=== PATIENT | male | born 1945 | race Caucasian/White ===

== ENCOUNTER 2019-03-06 08:27 | Emergency (ER) | payer OTHER, BC ==
--- OUTSIDE RECORDS SUMMARY | 2019-03-06 08:50 | XMS REPORT | Clinical Summary ---
:1945 Author Organization [facility] Address [address] [place] [address] Care Team Providers Name Role Phone Ethan Moses MD Primary Care Provider Allergies No Known Allergies Medications Medication Sig Dispensed Refills Start Date End Date Status metFORMIN TK 1 T PO BID 3 08/10/2016 Active (GLUCOPHAGE) 1,000 mg WITH SILVA AND tablet DINNER rosuvastatin TK 1 T PO QD 3 08/15/2016 Active (CRESTOR) 5 MG tablet lisinopril Take 2.5 mg by 0 Active (PRINIVIL,ZESTRIL) mouth daily. 2.5 mg tablet sitaGLIPtin (JANUVIA) Take 100 mg by 0 Active 100 MG tablet mouth daily. aspirin (ECOTRIN) 81 Take 81 mg by 0 Active MG enteric coated mouth daily. tablet valsartan (DIOVAN) 40 Take 40 mg by 0 Active MG tablet mouth daily. pioglitazone (ACTOS) Take 30 mg by 0 Active 15 MG tablet mouth daily. acetaminophen-codeine Take 1-2 tablets 40 tablet 0 02/19/2019 03/01/2019 (TYLENOL WITH CODEINE by mouth every 6 #3) 300-30 mg per (six) hours as tablet needed for moderate pain for up to 10 days. Hospital, Clinic, or Other Ordered Dose Route Frequency Start Date End Date Status Facility Administered Medication hylan g-f 20 (SYNVISC-ONE) 48 mg IAtc once 03/21/2018 Active injection 48 mgIndications: Primary osteoarthritis of left knee hylan g-f 20 (SYNVISC-ONE) 48 mg IAtc once 12/12/2018 12/12/2018 Ended injection 48 mgIndications: Primary osteoarthritis of left knee Active Problems Problem Noted Date Acute medial meniscus tear of left knee 02/18/2019 Encounters Date Type Specialty Care Team Description 03/01/2019 Office Visit Orthopedic Surgery Hema Hooker Primary osteoarthritis of left knee (Primary Dx); MD Kye Acute medial meniscus tear of left knee, initial encounter; Postoperative visit 02/19/2019 Surgery Orthopedic Surgery Hema Hooker LEFT KNEE ARTHROSCOPY MD Kye WITH MEDIAL MENISCECTOMY 02/19/2019 Anesthesia Event Orthopedic Surgery Kamar Ford MD 02/19/2019 Hospital Encounter Orthopedic Surgery Hema Hooker MD 02/19/2019 Orders Only Orthopedic Surgery George Weaver PA-C 01/14/2019 Orders Only Orthopedic Surgery George Weaver Acute medial meniscus ELLEN Brown tear of left knee, subsequent encounter (Primary Dx) 12/12/2018 Office Visit Orthopedic Surgery Hema Hooker Primary osteoarthritis MD Kye of left knee (Primary Dx) 03/21/2018 Office Visit Orthopedic Surgery Hema Hooker Primary osteoarthritis of left knee (Primary Dx); MD Kye Chronic pain of left knee after 03/05/2018 Family History Medical History Relation Name Comments Diabetes Father No Known Problems Maternal Grandfather No Known Problems Maternal Grandmother No Known Problems Mother No Known Problems Paternal Grandfather No Known Problems Paternal Grandmother Relation Name Status Comments Father Maternal Grandfather Maternal Grandmother Mother Paternal Grandfather Paternal Grandmother Social History Tobacco Use Types Packs/Day Years Used Date Former Smoker Smokeless Tobacco: Former User Comments: quit 30 yrs ago Alcohol Use Drinks/Week oz/Week Comments Yes 3 Shots of liquor 3.0 per month Sex Assigned at Date Recorded Not on file Job Start Date Occupation Industry Not on file Not on file Not on file Travel History Travel Start Travel End No recent travel history available. Last Filed Vital Signs Vital Sign Reading Time Taken Comments Blood Pressure 132/74 02/19/2019 11:10 AM CDT Pulse 65 02/19/2019 11:10 AM CDT Temperature 36.6 C (97.9 F) 02/19/2019 11:10 AM CDT Respiratory Rate 14 02/19/2019 11:10 AM CDT Oxygen Saturation 98% 02/19/2019 11:10 AM CDT Inhaled Oxygen Concentration - - Weight 89.8 kg (198 lb) 02/19/2019 6:56 AM CDT Height 182.9 cm (6') 02/19/2019 6:56 AM CDT Body Mass Index 26.85 02/19/2019 6:56 AM CDT Plan of Treatment Health Maintenance Due Date Last Done Comments COLONOSCOPY SCREENING 1996 SHINGLES VACCINES (#1) 1996 65+ PNEUMOCOCCAL VACCINE (1 of 2 - PCV13) 09/04/2011 INFLUENZA VACCINE 01/31/2019 Procedures Procedure Name Priority Date/Time Associated Comments Diagnosis POC GLUCOSE Routine 02/19/2019 8:40 Results for this AM CDT procedure are in the results section. [place] AN ELECTIVE Routine 02/19/2019 7:51 Results for this SUPRAGLOTTIC AIRWAY AM CDT procedure are in the results section. OPERATION, KNEE, 02/19/2019 7:39 Acute medial ARTHROSCOPIC AM CDT meniscus tear of left knee, initial encounter Case Notes REQ 0745 START Special Needs REQ 0745 START POC GLUCOSE Routine 02/19/2019 6:40 Results for this AM CDT procedure are in the results section. [place] ARTHROCENTESIS Routine 12/12/2018 10:30 Primary Results for this ASPIR&/INJ MAJOR AM CDT osteoarthritis of procedure are in JT/BURSA W/O US left knee the results section. XR LEG LENGTH Routine 03/21/2018 11:11 Chronic pain of left Results for this EVALUATION AM CDT knee procedure are in the results section. XR KNEE 3 VW LEFT Routine 03/21/2018 11:11 Chronic pain of left Results for this AM CDT knee procedure are in the results section. [place] ARTHROCENTESIS Routine 03/21/2018 10:30 Primary Results for this ASPIR&/INJ MAJOR AM CDT osteoarthritis of procedure are in JT/BURSA W/O US left knee the results section. after 03/05/2018 Results POC glucose (02/19/2019 8:40 AM CDT)Only the most recent of2 resultswithin the time period is included. POC glucose 149 (H) 65 - 99 mg/dL [facility] Comment: [facility] Notified RN Meter ID: [id number] Repairer Pump: Richy Warner Specimen Performing Organization Address City/State/Zipcode Phone Number [facility] DEPARTMENT OF PATHOLOGY AND [address] [place] [id number] [facility] [address] [place] [address] Airway (02/19/2019 7:51 AM CDT) Narrative Performed At Avila Tao CRNA 02/19/20197:51 AM Airway Date/Time: 02/19/2019 7:45 AM Performed by: Avila Tao CRNA Authorized by: Kamar Ford MD Location:OR Urgency:Elective Difficult Airway: No Resident/UNDERWATER PHOTOGRAPHER/AA:Avila Tao CRNA Performed by: resident/UNDERWATER PHOTOGRAPHER/AA Preoxygenated with 100% O2: Yes C-spine Precautions Maintained Throughout: Yes Mask Ventilation:Not attempted Final Airway Type:Supraglottic airway Final LMA:I-Gel LMA Size:5 Number of Attempts at Approach:1 Easy and atraumatic LMA insertion; Dentition unchanged; AOSI; +BSEB, +ETCO2; Eyes paper taped post LOC Left Knee Cortisone Injection (12/12/2018 10:30 AM CDT) Narrative Performed At Hema Hooker MD 12/12/2018 11:27 AM Left Knee Cortisone Injection Consent given by: patient Timeout: Immediately prior to procedure a time out was called to verify the correct patient, procedure, equipment, cell support operator and site/side marked as required Supporting Documentation Indications: pain Procedure Details Preparation: Patient was prepped and draped in the usual sterile fashion Ultrasound guided: no Location: knee - L knee Left side: Needle size: 20 G Approach: anterolateral Left knee medications administered: 40 mg methylPREDNISolone acetate 40 mg/mL; 1 mL lidocaine 10 mg/mL (1 %); 48 mg hylan g-f 20 48 mg/6 mL Patient tolerance: patient tolerated the procedure well with no immediate complications XR Leg Length Evaluation (03/21/2018 11:11 AM CDT) Specimen Narrative Performed At The mechanical axis of the right lower extremity falls to the side of the [facility] joint reveals a properly placed [place] unicompartmental prosthesis. On the left side the axis falls to the center of the joint but there appears to be some compression of the medial tibial plateau articular cartilage. I see no evidence of hip nor ankle arthritis. Performing Organization Address City/State/Zipcode Phone Number [facility] [address] [place] [address] XR Knee 3 Vw Left (03/21/2018 11:11 AM CDT) Specimen Narrative Performed At 3 x-ray views of the left knee show the joint spaces are maintained but HM RADIANT there is suspicion for a lateral osteophyte. His leg alignment is neutral. The patella femoral joint is pristine. Performing Organization Address City/State/Zipcode Phone Number [facility] [address] [place] [address] Large Joint Arthrocentesis (03/21/2018 10:30 AM CDT) Narrative Performed At Hema Hooker MD 03/21/2018 11:49 AM Large Joint Arthrocentesis Consent given by: patient Timeout: Immediately prior to procedure a time out was called to verify the correct patient, procedure, equipment, cell support operator and site/side marked as required Supporting Documentation Indications: pain Procedure Details Preparation: Patient was prepped and draped in the usual sterile fashion Ultrasound guided: no Location: knee - L knee Left side: Approach: anterolateral Left knee medications administered: 40 mg methylPREDNISolone acetate 40 mg/mL; 1 mL lidocaine 10 mg/mL (1 %); 48 mg hylan g-f 20 48 mg/6 mL Patient tolerance: patient tolerated the procedure well with no immediate complications after 03/05/2018 Insurance Payer Benefit Plan / Subscriber ID Effective Dates Phone Address Type Group MEDICARE MEDICARE PART A xxxxxxxxxxx 2011-Present [place], [place] Medicare AND B BCBS BCBS PAR/TRAD xxxxxxxxxxxx 2011-Present Indemnity PLAN [phone] [facility] 5 (Home) [place], [phone] [place] [phone] 7 (Work) Kush Payne Reconstructive Self 1945 [phone] [facility] Surgery 5 (Home) [place], [phone] [place] [address] 7 (Work) Advance Directives For more information, please contact: [phone] Type Date Recorded Patient Freight Delivery Driver Explanation Advance Directives, Living Will and Medical Power of Equal Opportunity Counselor
[2019-03-06] MEDS ORDERED: MAGNE/ALUM HYDROXD 30 ML UCUP ONE (08:55)
[2019-03-06] MEDS ORDERED: LIDOCAINE VISCOUS 2% SOLN 15 ML UDC ONE (08:55)
[2019-03-06 09:08] LABS: Absolute Lymphocytes (CBC) 1.4 K/uL (0.7-4.9); Basophils % 0.3 % (0-1.3); Hematocrit 40.3 % (39.6-49.0); MPV 8.4 fL (7.6-11.3); RBC Red Blood Cell Count 4.32 M/uL (4.33-5.43)
[2019-03-06 09:37] LABS: ALT/SGPT 67 U/L (12-78); AST/SGOT 82 U/L (15-37); Albumin 3.9 g/dL (3.4-5.0); Alkaline Phosphatase 93 U/L (45-117); BUN Blood Urea Nitrogen 27 mg/dL (7-18); Bicarbonate 23 mmol/L (21-32); Bilirubin Direct 0.2 mg/dL (0-0.2); Bilirubin Total 0.5 mg/dL (0.2-1.0); Glucose Level 199 mg/dL (74-106); Lipase 120 U/L (73-393); Potassium 4.2 mmol/L (3.5-5.1); Protein, Total 7.1 g/dL (6.4-8.2); Sodium Level 143 mmol/L (136-145); Troponin (Emerg Dept Use Only) < 0.02 ng/mL (0.0-0.045)
--- NOTE | 2019-03-06 09:43 | RAD REPORT ---
EXAM DESCRIPTION: RAD - Chest Single View - 03/06/2019 9:20 am CLINICAL HISTORY: Chest pain, hypertension COMPARISON: December 2014 TECHNIQUE: AP portable chest image was obtained 0906 hours . FINDINGS: Lungs are clear of acute finding. Lung markings match comparison. Heart and vasculature ar e normal. No measurable pleural effusion and no pneumothorax. No acute bony abnormality seen. No acut e aortic findings suspected. IMPRESSION: No acute cardiopulmonary process. No significant interval change.
[2019-03-06] MEDS ORDERED: NA CHLORIDE 0.9% 500 ML ONE (09:48)
--- NOTE | 2019-03-06 10:08 | EKG ---
Test Date: 2019-03-06 Test Time: 08:34:53 Branch Associate Teller: ANASTASIIA MEASUREMENT RESULTS: Intervals: Rate: 54 TX: 160 QRSD: 96 QT: 454 QTc: 430 [place]: P: 74 TX: 160 QRS: 61 T: 48 INTERPRETIVE STATEMENTS: Sinus bradycardia Otherwise normal ECG Compared to ECG 02/15/2012 01:28:50 Sinus rhythm no longer present Electronically Signed On 03-06-19 10:07:08 CDT by Adarsh Barrios
--- NOTE | 2019-03-06 10:25 | RAD REPORT ---
EXAM DESCRIPTION: CT - Chest For Pe Angio - 03/06/2019 9:57 am CLINICAL HISTORY: Chest pain. CHEST PAIN COMPARISON: THORAX WO CONTRAST dated 11/04/2011 TECHNIQUE: CT angiogram of the pulmonary arteries was performed with MIP. All CT scans are performed using dose optimization technique as appropriate and may include automated exposure control or mA/KV adjustment according to patient size. FINDINGS: No evidence of pulmonary thromboembolism. No acute aortic finding demonstrated. Mild emphysematous changes are present. No significant pericardial or pleural fluid. No concerning bony finding. IMPRESSION: No evidence of pulmonary thromboembolism. Mild COPD.
--- NOTE | 2019-03-06 10:38 | RAD REPORT ---
EXAM DESCRIPTION: US - Extremity Venous Uni Ltd - 03/06/2019 9:52 am CLINICAL HISTORY: Left leg pain and swelling COMPARISON: None. TECHNIQUE: Real-time sonographic evaluation of the left lower extremity deep venous system was perfo rmed. FINDINGS: Normal compressibility, flow augmentation, phasic flow and spontaneous flow are identified in the left lower extremity common femoral, superficial femoral, popliteal and posterior tibial vein s. No intraluminal filling defects seen. IMPRESSION: No DVT in the left lower extremity.
--- NOTE | 2019-03-06 11:20 | RAD REPORT ---
EXAM DESCRIPTION: CT - Abdomen Pelvis Wo Contrast - 03/06/2019 11:09 am CLINICAL HISTORY: Abdominal pain. ABD PAIN COMPARISON: CT ABD PELVIS W CONTRAST dated 02/14/2012; Chest For Pe Angio dated 03/06/2019 TECHNIQUE: CT imaging of the abdomen and pelvis was performed without contrast. Solid organ, bowel a nd vascular assessment is limited due to lack of IV and oral contrast. All CT scans are performed using dose optimization technique as appropriate and may include automated exposure control or mA/KV adjustment according to patient size. FINDINGS: The lower lung moore are clear.Cholecystectomy clips. The liver, spleen, pancreas, adrenal glands and kidneys are within normal limits for a limited non-co ntrast examination. No bowel obstruction, free air, free fluid or abscess. Sigmoid diverticulosis coli without diverticul itis. The appendix is normal. The osseous structures are within normal limits. IMPRESSION: Sigmoid diverticulosis coli without diverticulitis. A limited non-contrast examination was performed as detailed.
--- NOTE | 2019-03-06 13:13 | ER ---
Nurse's Notes [facility] Name: Kush Payne Age: 73 yrs Sex: Male : 1945 Arrival Date: 03/06/2019 Time: 08:30 Bed 13 Private MD: Diagnosis: Gastritis, unspecified;Diverticulosis of large intestine without perforation or abscess without bleeding Presentation: 03/06 08:30 Presenting complaint: Patient states: chest pain that began today at 0700 that it's aa5 intermittent. Pt denies nausea, denies SOB. Transition of care: patient was not received from another setting of care. Onset of symptoms was March 06, 2019. Risk Assessment: Do you want to hurt yourself or someone else? Patient reports no desire to harm self or others. Care prior to arrival: None. 08:30 Method Of Arrival: Ambulatory aa5 08:30 Acuity: [facility] 2 aa5 09:44 Initial Sepsis Screen: Does the patient meet any 2 criteria? No. Patient's initial tw2 sepsis screen is negative. Does the patient have a suspected source of infection? No. Patient's initial sepsis screen is negative. Historical: - Allergies: 08:32 No Known Allergies; aa5 - Home Meds: 09:05 metformin 1,000 mg Oral tab [Active]; Januvia oral oral [Active]; glimepiride Oral jl7 [Active]; Levemir 100 unit/mL subcutaneous soln [Active]; - PMHx: 08:32 Diabetes - IDDM; Hypertension; aa5 - PSHx: 08:32 eye sx; left knee; Cholecystectomy; aa5 - Immunization history:: Flu vaccine is not up to date. - Social history:: Smoking status: Patient/guardian denies using tobacco. - Ebola Screening: : No symptoms or risks identified at this time. - Family history:: not pertinent. - Hospitalizations: : No recent hospitalization is reported. Screenin:54 Abuse screen: Denies threats or abuse. Denies injuries from another. Nutritional jl7 screening: No deficits noted. Tuberculosis screening: No symptoms or risk factors identified. Fall Risk IV access (20 points). Total Reyna Fall Scale indicates No Risk (0-24 pts). Assessment: 08:30 General: Appears in no apparent distress. Behavior is cooperative, appropriate for age. tw2 Pain: Complains of pain in chest Pain does not radiate. Pain began 2 hours ago. Aggravated by pain is intermittent. Neuro: Level of Consciousness is awake, alert, obeys commands, Oriented to person, place, time, situation. Cardiovascular: Reports chest pain, Heart tones S1 S2 Patient's skin is warm and dry. Rhythm is sinus rhythm. Respiratory: Airway is patent Respiratory effort is even, unlabored, Respiratory pattern is regular, symmetrical, Breath sounds are clear bilaterally. GI: No signs and/or symptoms were reported involving the gastrointestinal system. Abdomen is round Bowel sounds present X 4 quads. : No signs and/or symptoms were reported regarding the genitourinary system. EENT: No signs and/or symptoms were reported regarding the EENT system. Derm: No signs and/or symptoms reported regarding the dermatologic system. Musculoskeletal: Range of motion: intact in all extremities. 09:44 Reassessment: pt in imaging at this time, not available for vs at this time. tw2 10:07 Reassessment: Patient appears in no apparent distress at this time. Patient and/or tw2 family updated on plan of care and expected duration. Pain level reassessed. Patient is alert, oriented x 3, equal unlabored respirations, skin warm/dry/pink. Patient states feeling better. Patient states symptoms have improved. 11:13 Reassessment: Patient appears in no apparent distress at this time. No changes from tw2 previously documented assessment. Patient and/or family updated on plan of care and expected duration. Pain level reassessed. Patient is alert, oriented x 3, equal unlabored respirations, skin warm/dry/pink. 12:24 Reassessment: dr sullivan explained the results to the patient. advised about the waiting mg2 time for the repeat lab test. Vital Signs: 08:32 BP 94 / 68; Pulse 56; Resp 18 S; Temp 97.5(O); Pulse Ox 99% on R/A; Weight 90.72 kg aa5 (R); Height 6 ft. 0 in. (182.88 cm) (R); Pain 3/10; 09:06 BP 107 / 68; Pulse 57; Resp 14 S; Pulse Ox 98% on R/A; jl7 10:07 BP 107 / 69; Pulse 65; Resp 19; Pulse Ox 100% on R/A; Pain 0/10; tw2 11:13 BP 138 / 96; Pulse 57; Resp 17; Pulse Ox 100% on R/A; tw2 12:24 BP 138 / 82; Pulse 61; Resp 18; Pulse Ox 100% on R/A; mg2 08:32 Body Mass Index 27.13 (90.72 kg, 182.88 cm) aa5 ED Course: 08:30 Patient arrived in ED. aa5 08:30 Arm band placed on. aa5 08:31 Triage completed. aa5 08:33 EKG completed in triage. Results shown to MD. aa5 08:34 EKG done, by ED staff, reviewed by Abhilash Sullivan MD. dh3 08:41 Abhilash Sullivan MD is Attending Physician. rn 08:53 Silvana Kohli RN is Primary Nurse. tw2 08:54 Patient has correct armband on for positive identification. Bed in low position. Call jl7 light in reach. Side rails up X 1. rn gynecology on. Pulse ox on. NIBP on. 08:54 Initial lab(s) drawn, by me, sent to lab. Inserted saline lock: 20 gauge in right jl7 forearm, using aseptic technique. Blood collected. Patient maintains SpO2 saturation greater than 95% on room air. 09:29 XRAY Chest (1 view) In Process Unspecified. EDMS 10:02 CT Chest For PE Angio In Process Unspecified. EDMS 10:02 Extremity Venous Uni Ltd US In Process Unspecified. EDMS 11:18 Abdomen In Process Unspecified. EDMS 12:05 Report given to MAYO Field. tw2 12:23 No provider procedures requiring assistance completed. Repeat lab(s) drawn. by me, sent mg2 to lab. 13:10 Smith Reveles MD is Referral Physician. rn 13:27 IV discontinued, intact, bleeding controlled, No redness/swelling at site. Pressure tw2 dressing applied, per MAYO Field. Administered Medications: 08:58 Drug: GI Cocktail without - (Maalox Suspension 30 ml, Lidocaine Liquid 2 % 15 tw2 ml) Route: PO; 11:59 Follow up: Response: No adverse reaction tw2 10:07 Drug: NS 0.9% 500 ml Route: IV; Rate: bolus; Site: right antecubital; tw2 Outcome: 13:10 Discharge ordered by . rn 13:27 Patient left the ED. tw2 13:27 Discharged to home ambulatory, with family. 13:27 Condition: stable 13:27 Condition: stable 13:27 Discharge instructions given to patient, family, Instructed on discharge instructions, follow up and referral plans. Demonstrated understanding of instructions, follow-up care. Signatures: Dispatcher [employer] EDMS Abhilash Sullivan MD MD rn Calderon, Audri RN RN aa5 Silvana Kohli RN RN tw2 Brady Berger RN RN 7 Fatimah Menjivar 3 Osito Walters RN RN mg2 Corrections: (The following items were deleted from the chart) 08:35 08:32 90.72 kg Reported; Height 6 ft. 0 in. Reported; BMI: 27.1; Pain 3/10; aa5 aa5 08:35 08:32 Pulse 56bpm; Resp 18bpm; Spontaneous; Pulse Ox 99% RA; Temp 97.5F Oral; 90.72 kg aa5 Reported; Height 6 ft. 0 in. Reported; BMI: 27.1; Pain 3/10; aa5 08:36 08:30 Acuity: [facility] 3 aa5 aa5 09:44 08:30 Reassessment: tw
--- NOTE | 2019-03-06 13:14 | EDPHYS ---
Physician Documentation [facility] Name: Kush Payne Age: 73 yrs Sex: Male : 1945 Arrival Date: 03/06/2019 Time: 08:30 Bed 13 Private MD: ED Physician Abhilash Sullivan HPI: 03/06 09:05 This 73 yrs old Male presents to ER via Ambulatory with complaints of rn abdominal and chest pain. 09:05 The patient or guardian reports chest pain that is located primarily in the substernal rn area, epigastric area. Onset: this morning. The pain does not radiate. Associated signs and symptoms: Pertinent positives: abdominal pain, lower extremity swelling, Pertinent negatives: cough, diaphoresis, dizziness, lightheadedness, palpitations, recent travel, shortness of breath, syncope. The chest pain is described as aching. Duration: The patient or guardian reports multiple episodes, that are intermittent, the episodes last approximately 10 minute(s). Modifying factors: The symptoms are alleviated by nothing. the symptoms are aggravated by nothing. The patient has experienced a previous episode. Reports upper abd pain and substernal pain, began this AM, no radiation, no fever/cough/sob/vomiting/diarrhea. Reports 2 weeks s/p surgery left knee with mild swelling, no hx of dvt/PE. No trauma. NOthing makes it better or worse. . Historical: - Allergies: 08:32 No Known Allergies; aa5 - Home Meds: 09:05 metformin 1,000 mg Oral tab [Active]; Januvia oral oral [Active]; glimepiride Oral jl7 [Active]; Levemir 100 unit/mL subcutaneous soln [Active]; - PMHx: 08:32 Diabetes - IDDM; Hypertension; aa5 - PSHx: 08:32 eye sx; left knee; Cholecystectomy; aa5 - Immunization history:: Flu vaccine is not up to date. - Social history:: Smoking status: Patient/guardian denies using tobacco. - Ebola Screening: : No symptoms or risks identified at this time. - Family history:: not pertinent. - Hospitalizations: : No recent hospitalization is reported. ROS: 09:05 Constitutional: Negative for fever, chills, and weight loss, Eyes: Negative for injury, rn pain, redness, and discharge, Neck: Negative for injury, pain, and swelling, Cardiovascular: Negative for edema Respiratory: Negative for shortness of breath, cough, wheezing, and pleuritic chest pain, Abdomen/GI: Negative for vomiting, diarrhea, and constipation, MS/Extremity: Negative for injury and deformity, Skin: Negative for injury, rash, and discoloration, Neuro: Negative for headache, weakness, numbness, tingling, and seizure. Exam: 09:05 Constitutional: This is a well developed, well nourished patient who is awake, alert, rn and in no acute distress. Head/Face: Normocephalic, atraumatic. ENT: MMM Cardiovascular: Regular rate and rhythm, No pulse deficits. Respiratory: Lungs have equal breath sounds bilaterally, clear to auscultation. No increased work of breathing, no retractions or nasal flaring. Abdomen/GI: soft, non-tender MS/ Extremity: Pulses equal, no cyanosis. Neurovascular intact. Full, normal range of motion. LLE with mild lower swelling and increased circumference compared to RLE. Neuro: Awake and alert, GCS 15, oriented to person, place, time, and situation. Cranial nerves II-XII grossly intact. Motor strength 5/5 in all extremities. Sensory grossly intact. Cerebellar exam normal. 09:42 ECG was reviewed by the Attending Physician. rn Vital Signs: 08:32 BP 94 / 68; Pulse 56; Resp 18 S; Temp 97.5(O); Pulse Ox 99% on R/A; Weight 90.72 kg aa5 (R); Height 6 ft. 0 in. (182.88 cm) (R); Pain 3/10; 09:06 BP 107 / 68; Pulse 57; Resp 14 S; Pulse Ox 98% on R/A; jl7 10:07 BP 107 / 69; Pulse 65; Resp 19; Pulse Ox 100% on R/A; Pain 0/10; tw2 11:13 BP 138 / 96; Pulse 57; Resp 17; Pulse Ox 100% on R/A; tw2 12:24 BP 138 / 82; Pulse 61; Resp 18; Pulse Ox 100% on R/A; mg2 08:32 Body Mass Index 27.13 (90.72 kg, 182.88 cm) aa5 MDM: 08:41 Patient medically screened. rn 10:56 ED course: Symptoms resolved after GI cocktail.. rn 13:08 Differential diagnosis: anxiety, coronary artery disease chest wall pain, rn costochondritis, esophagitis, gastritis, gastroesophageal reflux disease (GERD), pancreatitis, peptic ulcer disease, pericarditis, pleurisy. Data reviewed: vital signs, nurses notes, lab test result(s), EKG, radiologic studies, CT scan, plain films, and as a result, I will discharge patient. Counseling: I had a detailed discussion with the patient and/or guardian regarding: the historical points, exam findings, and any diagnostic results supporting the discharge/admit diagnosis, lab results, radiology results, the need for outpatient follow up, to return to the emergency department if symptoms worsen or persist or if there are any questions or concerns that arise at home. Response to treatment: the patient's symptoms have resolved after treatment, the patient's condition has returned to base line, the patient is now symptom free, and as a result, I will discharge patient. ED course: CT chest for PE negative, CT abdomen negative, labs look good, trop and ecg neg x 2, will dc home. Resolved with GI cocktail. Advised to follow good diet for both acid reflux/gastritis and diverticulosis. Return precautions given and understood. Tolerated PO. . 03/06 08:49 Order name: Basic Metabolic Panel; Complete Time: 09:41 rn 03/06 08:49 Order name: CBC with Diff; Complete Time: 09:33 rn 03/06 08:49 Order name: Creatinine for Radiology; Complete Time: 09:33 rn 03/06 08:49 Order name: Hepatic Function; Complete Time: 09:41 rn 03/06 08:49 Order name: Lipase; Complete Time: 09:41 rn 03/06 08:49 Order name: Troponin (emerg Dept Use Only); Complete Time: 09:41 rn 03/06 08:49 Order name: XRAY Chest (1 view); Complete Time: 10:45 rn 03/06 08:49 Order name: CT Chest For PE Angio; Complete Time: 13:00 rn 03/06 08:49 Order name: Extremity Venous Uni Ltd US; Complete Time: 13:00 rn 03/06 10:45 Order name: CT Abd/Pelvis - IV Contrast Only rn 03/06 11:00 Order name: Abdomen EDMS 03/06 11:44 Order name: Troponin (emerg Dept Use Only) rn 03/06 08:49 Order name: IV Saline Lock; Complete Time: 08:59 rn 03/06 08:49 Order name: Labs collected and sent; Complete Time: 08:56 rn 03/06 08:49 Order name: EKG - Nurse/Tech; Complete Time: 08:54 rn 03/06 08:49 Order name: EKG; Complete Time: 08:52 rn 03/06 11:44 Order name: EKG; Complete Time: 11:46 rn 03/06 11:44 Order name: EKG - Nurse/Tech; Complete Time: 12:23 rn EC: Rate is 54 beats/min. Rhythm is regular. QRS [place] is Normal. MI interval is normal. QRS rn interval is normal. QT interval is normal. No Q waves. T waves are Normal. No ST changes noted. Clinical impression: Sinus bradycardia. Interpreted by me. Reviewed by me. Administered Medications: 08:58 Drug: GI Cocktail without - (Maalox Suspension 30 ml, Lidocaine Liquid 2 % 15 tw2 ml) Route: PO; 11:59 Follow up: Response: No adverse reaction tw2 10:07 Drug: NS 0.9% 500 ml Route: IV; Rate: bolus; Site: right antecubital; tw2 Disposition: 03/06/19 13:10 Discharged to Home. Impression: Gastritis, unspecified, Diverticulosis of large intestine without perforation or abscess without bleeding. - Condition is Stable. - Discharge Instructions: Diverticulosis, Gastritis, Adult. - Medication Reconciliation Form, Thank You Letter, Antibiotic Education, Prescription Opioid Use form. - Follow up: Smith Reveles MD; When: As needed; Reason: Recheck today's complaints, Re-evaluation by your physician. - Problem is new. - Symptoms have improved. Signatures: Dispatcher [employer] EDMS Abhilash Sullivan MD MD rn Calderon, Audri, RN RN aa5 Silvana Kohli RN RN tw2 Brady Berger RN RN jl7 Corrections: (The following items were deleted from the chart) 13:27 13:10 03/06/2019 13:10 Discharged to Home. Impression: Gastritis, unspecified; tw2 Diverticulosis of large intestine without perforation or abscess without bleeding. Condition is Stable. Forms are Medication Reconciliation Form, Thank You Letter, Antibiotic Education, Prescription Opioid Use. Follow up: Smith Reveles; When: As needed; Reason: Recheck today's complaints, Re-evaluation by your physician. Problem is new. Symptoms have improved. rn
[2019-03-06 13:34] VITALS: TEMP 97.5
[2019-03-06 13:36] VITALS: O2SAT 100
[2019-03-06 13:38] VITALS: BP 138/82
--- NOTE | 2019-03-06 15:13 | EKG ---
Test Date: 2019-03-06 Test Time: 11:54:16 Motel Front Desk Clerk: LULA MEASUREMENT RESULTS: Intervals: Rate: 57 TX: 172 QRSD: 98 QT: 440 QTc: 428 [place]: P: 74 TX: 172 QRS: 59 T: 37 INTERPRETIVE STATEMENTS: Sinus bradycardia Otherwise normal ECG Compared to ECG 03/06/2019 08:34:53 No significant changes Electronically Signed On 03-06-19 15:12:29 CDT by Adarsh Barrios
== END 2019-03-06 13:27 | disposition home or self-care (01) ==
LOC: ER 08:27
DX: K29.70 Gastritis, unspecified, without bleeding (principal); K57.32 Diverticulitis of large intestine without perforation or abscess without bleeding; I10 Essential (primary) hypertension; E11.9 Type 2 diabetes mellitus without complications; Z79.4 Long term (current) use of insulin
CPT/HCPCS: 93005 ×2; 85025; 80048; 36415; 80076; 84484 ×2; 83690; 71275; 74176; 71045; 93971; 99285; Q9967

== ENCOUNTER 2021-01-27 06:30 | Day surgery (SDC) | payer OTHER, BC ==
[2021-01-26 11:13] LABS: Protime INR 0.93
[2021-01-26 11:15] LABS: Absolute Lymphocytes (CBC) 1.2 K/uL (0.7-4.9); Basophils % 0.5 % (0-1.3); Lymphocytes % 31.9 % (15.3-44.8); MPV 7.5 fL (7.6-11.3); RBC Red Blood Cell Count 4.47 M/uL (4.33-5.43)
--- NOTE | 2021-01-26 11:26 | RAD REPORT ---
EXAM DESCRIPTION: RAD - Chest Pa And Lat (2 Views) - 01/26/2021 11:01 am CLINICAL HISTORY: preop, pending heart catheterization COMPARISON: March 2019, December 2014 TECHNIQUE: Frontal and lateral views of the chest were obtained. FINDINGS: The lungs are clear. Interstitial pattern matches comparison. Heart size is normal and ce ntral vasculature is within normal limits. No pleural effusion or pneumothorax seen. No acute bony finding noted. No aortic abnormality. IMPRESSION: No acute cardiopulmonary process. No significant change from comparison study.
[2021-01-26 11:32] LABS: Potassium 4.2 mmol/L (3.5-5.1)
[2021-01-27 06:56] VITALS: TEMP 97.5
[2021-01-27] MEDS ORDERED: NA CHLORIDE 0.9% 500 ML ONE (07:05)
[2021-01-27] MEDS ORDERED: LIDOCAINE 1% 20 ML MDV ONE (07:07)
[2021-01-27] MEDS ORDERED: HEPA 1000U/500MLS 1,000 UNIT/500 ML BAG IV ONE (07:08)
[2021-01-27] MEDS ORDERED: MIDAZOLAM HCL 2 MG/2 ML INJ ONE ×2 (07:24→07:50)
[2021-01-27] MEDS ORDERED: FENTANYL CITR 100 MCG/2 ML ONE (07:24)
[2021-01-27] MEDS ORDERED: NA CHLORIDE 0.9% 50 ML ONE (07:25)
[2021-01-27] MEDS ORDERED: ATROPINE SULF 1 MG/10 ML SYR IV ONE (07:25)
[2021-01-27] MEDS ORDERED: NITROGLYCERIN/D5W 25 MG/250 ML BTL IV ONE (07:58)
[2021-01-27] MEDS ORDERED: NITROGLYCERIN 100 MCG/ML SYR (for cath lab use only) IV ONE (07:58)
[2021-01-27] MEDS ORDERED: PRASUGREL (EFFIENT) 10 MG TAB ONE (08:19)
[2021-01-27] MEDS ORDERED: ACETAMINOPHEN 325 MG TABLET ONE (08:21)
[2021-01-27] MEDS ORDERED: ASPIRIN 325 MG TAB ONE (08:23)
--- NOTE | 2021-01-27 09:36 | OP ---
Surgeon: Atif Chan MD Technologist Development: Mr. Malcom Boothe. The patient admitted to my service as an outpatient on 01/27/2021 at 7:30 in the morning. Reason For Admission: Left heart catheterization, selective coronary arteriogram, angioplasty and st ent of the distal circumflex. Procedure In Detail: Mr. Payne is 75, has a history of diabetes, hypertension, dyslipidemia with [facility] symptoms for unstable angina, brought to the sugar laboratory assistant today as an outpatient, prepped and draped in routine sterile fashion, given Versed and fentanyl for sedation. [place]ingo catheter left and right were used to do the diagnostic catheterization. His RCA was dominant with [id number] plaquing . The circumflex was nondominant, but was rather a big vessel with a 90% distal stenosis. Left main was normal. LAD had a 20% proximal stenosis. I decided to intervene with the distal circumflex. A n XB 3.5 guide with side holes was used to cannulate the left main. A cougar wire 0.014 exchange [facility] was used to cross the lesion successfully. I attempted to do a primary stent, however, I could n ot. I then proceeded to pre-dilate with an Emerge 2.5 x 15 balloon at 6 atmospheres. Following that , we put a 2.25 x 12 Synergy stent with 0% residual. Intracoronary nitroglycerin was given before th e final shot. There were excellent results. No dissections or acute closure. There were no complic ations. Estimated Blood Loss: 5 cc. The patient received Angiomax, aspirin, and Effient during the procedure. Postoperative Diagnosis: Coronary artery disease, status post successful angioplasty and stent of th e distal circumflex. We will continue medical therapy. The patient will be here in the hospital for about 8 hours after using Angio-Seal to close his right groin. He can go home later on today and I will see him in the office in the next 2 weeks. He will continue his home medicine except that he wi ll start taking Plavix now. NED/JIMBOL Voice ID: [id number] Report ID: [id number]
[2021-01-27 15:27] VITALS: O2SAT 99
[2021-01-27 16:11] VITALS: BP 128/85
== END 2021-01-27 16:13 | disposition home or self-care (01) ==
LOC: CCL 06:30
DX: I25.110 Atherosclerotic heart disease of native coronary artery with unstable angina pectoris (principal); I10 Essential (primary) hypertension; E11.9 Type 2 diabetes mellitus without complications; E78.5 Hyperlipidemia, unspecified; Z87.891 Personal history of nicotine dependence
CPT/HCPCS: 85025; 80048; 36415; 85610; 82947 ×2; 85347 ×2; 85730; 71046; 93454; C1893; C1760; C1725; C9600; J2250 ×2; J3010; J0583; J7040; J1644